=== PATIENT | male | born 1980 | race African-American/Black ===

== ENCOUNTER 2020-08-14 02:17 | Emergency (ER) | payer BC, OTHER ==
[~2020-08-14] VITALS: Ht 188 cm; Wt 97.3 kg
[2020-08-14] MEDS ORDERED: AZITHROMYCIN 500 MG TABLET ONE (02:37)
[2020-08-14] MEDS ORDERED: CEFTRIAXONE 250 MG ONE (02:37)
[2020-08-14] MEDS ORDERED: CEFTRIAXONE 250 MG IM ONE (03:00)
[2020-08-14] MEDS ORDERED: AZITHROMYCIN 500 MG TABLET PO ONE (03:00)
[2020-08-14 03:07] LABS: MICROSCOPIC NOT IND
[2020-08-14 03:32] VITALS: BP 152/90
== END 2020-08-14 03:35 | disposition home or self-care (01) ==
LOC: ED 03:00
DX: A55 Chlamydial lymphogranuloma (venereum) (principal); A54.9 Gonococcal infection, unspecified; Z20.6 Contact with and (suspected) exposure to human immunodeficiency virus [HIV]
CPT/HCPCS: 36415; 81003; 86592; 87491; 87591; 87806; 96372; 99283; J0696; G0475